=== PATIENT | female | born 1955 | race Caucasian/White ===

== ENCOUNTER 2023-12-15 13:31 | Emergency (ER) | payer OTHER, MEDICARE ==
[~2023-12-15] VITALS: Ht 165.1 cm; Wt 97.8 kg
[2023-12-15] MEDS ORDERED: ACETAMINOPHEN 500 MG TAB PO ONE (13:45)
[2023-12-15] MEDS ORDERED: SYNTHROID100 MCG PO (13:56)
[2023-12-15] MEDS ORDERED: BARIATRIC MV-I1 EACH PO (13:56)
[2023-12-15 15:31] VITALS: BP 128/68
== END 2023-12-15 15:31 | disposition home or self-care (01) ==
LOC: ED 13:31
DX: S82.892A Other fracture of left lower leg, initial encounter for closed fracture (principal); S40.211A Abrasion of right shoulder, initial encounter; S20.311A Abrasion of right front wall of thorax, initial encounter; S80.812A Abrasion, left lower leg, initial encounter; V89.2XXA Person injured in unspecified motor-vehicle accident, traffic, initial encounter; Z79.899 Other long term (current) drug therapy
CPT/HCPCS: 71045; 73610; 99284; A9270